=== PATIENT | female | born 1975 | race Caucasian/White ===

== ENCOUNTER 2017-01-27 13:35 | Day surgery (SDC) | payer OTHER ==
[~2017-01-27] VITALS: Ht 162.6 cm; Wt 118.1 kg
[~2017-01-27 13:35] MED LIST: ADVIL,NUPRIN,M200 MG PO; AMLODIPINE BESYL5 MG PO; BISOPROLOL-HCT1 EAC2 PO; IRON325 MG PO; ITRACONAZOLE100 MG PO; LORATADINE10 M2 PO; NAPROXEN375 MG PO; PANTOPRAZOLE SO40 MG PO; SPIRONOLACTONE50 MG PO; VITAMIN C1000 MG PO
[2017-01-27 14:35] VITALS: BP 131/80
[2017-01-27 20:40] VITALS: BP 124/82
[2017-01-27 21:15] VITALS: BP 115/73
== END 2017-01-27 21:34 | disposition home or self-care (01) ==
LOC: SDC 13:35
DX: H33.032 Retinal detachment with giant retinal tear, left eye (principal); I10 Essential (primary) hypertension; K21.9 Gastro-esophageal reflux disease without esophagitis; E66.9 Obesity, unspecified; Z68.41 Body mass index [BMI] 40.0-44.9, adult; F17.210 Nicotine dependence, cigarettes, uncomplicated
CPT/HCPCS: 93005; J0690; J2250; J2405; J3010; J3300

== ENCOUNTER 2017-06-27 05:27 | Day surgery (SDC) | payer OTHER ==
[~2017-06-27] VITALS: Ht 162.6 cm; Wt 122.5 kg
[2017-06-27 06:55] VITALS: BP 116/68
[2017-06-27 09:10] VITALS: BP 126/76
== END 2017-06-27 09:50 | disposition home or self-care (01) ==
LOC: SDC 05:27
DX: H33.22 Serous retinal detachment, left eye (principal); I10 Essential (primary) hypertension; E66.9 Obesity, unspecified; Z68.42 Body mass index [BMI] 45.0-49.9, adult; K21.9 Gastro-esophageal reflux disease without esophagitis; E28.2 Polycystic ovarian syndrome; F17.200 Nicotine dependence, unspecified, uncomplicated; Z82.49 Family history of ischemic heart disease and other diseases of the circulatory system; Z83.3 Family history of diabetes mellitus; Z88.8 Allergy status to other drugs, medicaments and biological substances
CPT/HCPCS: J0690; J2250; J2405; J3010; J3300

== ENCOUNTER 2017-08-01 09:05 | Day surgery (SDC) | payer OTHER ==
[~2017-08-01] VITALS: Ht 162.6 cm; Wt 122.5 kg
[2017-08-01 09:46] VITALS: BP 134/82
[2017-08-01 12:46] VITALS: BP 142/86
== END 2017-08-01 13:05 | disposition home or self-care (01) ==
LOC: SDC 09:05
PROVIDERS: Internal Medicine
DX: H35.342 Macular cyst, hole, or pseudohole, left eye (principal); K21.9 Gastro-esophageal reflux disease without esophagitis; I10 Essential (primary) hypertension; F17.200 Nicotine dependence, unspecified, uncomplicated; E78.5 Hyperlipidemia, unspecified; Z83.3 Family history of diabetes mellitus; Z82.49 Family history of ischemic heart disease and other diseases of the circulatory system
CPT/HCPCS: 81025; J0690; J3300